=== PATIENT | male | born 1945 | race Caucasian/White ===

== ENCOUNTER 2016-05-08 07:02 | Emergency (ER) | payer MEDICARE, OTHER ==
--- NOTE | 2016-05-08 07:36 | ERPHSYRPT ---
- History of Present Illness Time Seen by Provider: 05/08/16 07:20 Historian: patient, family Exam Limitations: no limitations Physician History: The patient is a 71-year-old male with his complaining of abdominal pain and fever for a week. His fevers have been as high as 103. Yesterday was 102. Abdominal pain is very low. He denies nausea vomiting or diarrhea. He had a small bowel movement yesterday and another small one today. His appetite has decreased. His past medical history is significant for diabetes, hypertension, high cholesterol, and hypothyroidism. His past surgical history is significant for tonsil and adenoidectomy, cholecystectomy, and hernia repair. Timing/Duration: week(s) (1) Activities at Onset: none Quality: aching Abdominal Pain Onset Location: other (lower abd) Pain Radiation: no radiation Severity of Pain-Max: moderate Severity of Pain-Current: moderate Modifying Factors: Improves With: nothing Associated Symptoms: denies symptoms Previous symptoms: no prior history Allergies/Adverse Reactions: Sulfa (Sulfonamide Antibiotics) Allergy (Severe, Verified 05/08/16 07:21) cigarette smoke Allergy (Verified 05/08/16 07:21) Home Medications: Aspirin [[place] Aspirin] 81 mg PO DAILY 05/08/16 [History] Carvedilol 6.25 mg [Coreg 6.25 MG] 6.25 mg PO BID 05/08/16 [History] Insulin Aspart [Novolog Flexpen] 15 unit SQ DAILY 05/08/16 [History] Insulin Aspart [Novolog Flexpen] 20 unit SQ HS 05/08/16 [History] Insulin Detemir [Levemir Flextouch] 55 unit SQ DAILY 05/08/16 [History] Insulin Detemir [Levemir Flextouch] 60 unit SQ HS 05/08/16 [History] Levothyroxine Sodium 112 Mcg [Synthroid 112 Mcg] 112 mcg PO DAILY 05/08/16 [History] Lisinopril 20 mg [Zestril 20 MG] 20 mg PO DAILY 05/08/16 [History] Metformin HCl 1000 mg [Glucophage 1000 MG] 1,000 mg PO BID 05/08/16 [History] Simvastatin [Zocor] 20 mg PO DAILY 05/08/16 [History] - Review of Systems Constitutional: Fever, Chills Eyes: No Symptoms Ears, Nose, & Throat: No Symptoms Respiratory: No Cough, No Dyspnea Cardiac: No Chest Pain, No Edema, No Syncope Abdominal/Gastrointestinal: No Abdominal Pain, No Nausea, No Vomiting, No Diarrhea Genitourinary Symptoms: No Dysuria Musculoskeletal: No Back Pain, No Neck Pain Skin: No Rash Neurological: No Dizziness, No Focal Weakness, No Sensory Changes Psychological: No Symptoms Endocrine: No Symptoms Hematologic/Lymphatic: No Symptoms Immunological/Allergic: No Symptoms All Other Systems: Reviewed and Negative - Nursing Vital Signs Nursing Vital Signs: Initial Vital Signs Temperature 98.4 F Temperature Source Oral Pulse Rate 85 Respiratory Rate 20 Blood Pressure 118/68 Pain Intensity 4 - Physical Exam General Appearance: mild distress Eye Exam: PERRL/EOMI, eyes nml inspection Ears, Nose, Throat Exam: normal ENT inspection, pharynx normal, moist mucous membranes Neck Exam: normal inspection, non-tender, supple, full range of motion Respiratory Exam: normal breath sounds, lungs clear, No respiratory distress Cardiovascular Exam: regular rate/rhythm, normal heart sounds Gastrointestinal/Abdomen Exam: tenderness (suprapubic and left groin and LLQ) Rectal Exam: normal exam, normal rectal tone Back Exam: normal inspection, normal range of motion, No CVA tenderness, No vertebral tenderness Extremity Exam: normal inspection, normal range of motion, pelvis stable Neurologic Exam: alert, oriented x 3, cooperative, normal mood/affect, nml cerebellar function, sensation nml, No motor deficits Skin Exam: normal color, warm, dry SpO2 Interpretation: normal - CT Exams Abdomen/Pelvis CT Interpretation: Tele-radiologist Report, Other (Possible SIOBHAN infarct.) Ordered Tests: Active Orders 24 hr Category Date Time Status IV Insertion STAT Care 05/08/16 07:39 Active ABDOMEN AND PELVIS W/0 CONTRAS [CT] Stat Exams 05/08/16 09:50 Taken CBC W DIFF Stat Lab 05/08/16 08:07 Completed CMP Stat Lab 05/08/16 08:07 Completed Lactic Acid Urgent Lab 05/08/16 07:39 Completed Manual Differential NC Stat Lab 05/08/16 08:07 Completed Occult Blood,Stool Other Stat Lab 05/08/16 08:08 Completed UA W/ MICROSCOPIC Stat Lab 05/08/16 09:28 Completed Medication Summary Discontinued Medications Generic Name Dose Route Start Last Admin Trade Name Freq PRN Reason Stop Dose Admin Sodium Chloride 1,000 mls @ 999 mls/hr 05/08/16 07:39 05/08/16 08:18 Sodium Chloride 0.9% 1000 Ml IV 05/08/16 08:39 999 mls/hr .Q1H1M STA Administration Sodium Chloride Confirm 05/08/16 08:15 Sodium Chloride 0.9% 1000 Ml Administered 05/08/16 08:16 Dose 1,000 mls @ ud .ROUTE .STK-MED ONE Ketorolac Tromethamine 30 mg 05/08/16 07:39 05/08/16 08:19 Toradol 30 Mg Injection IV 05/08/16 07:40 30 mg STAT ONE Administration Ketorolac Tromethamine Confirm 05/08/16 08:15 Toradol 30 Mg Injection Administered 05/08/16 08:16 Dose 30 mg .ROUTE .STK-MED ONE Morphine Sulfate 2 mg 05/08/16 07:39 05/08/16 08:19 Morphine Sulfate 2 Mg Inj IV 05/08/16 07:40 2 mg STAT ONE Administration Morphine Sulfate Confirm 05/08/16 08:15 Morphine Sulfate 2 Mg Inj Administered 05/08/16 08:16 Dose 2 mg .ROUTE .STK-MED ONE Morphine Sulfate 2 mg 05/08/16 08:58 05/08/16 09:24 Morphine Sulfate 2 Mg Inj IV 05/08/16 08:59 2 mg STAT ONE Administration Morphine Sulfate Confirm 05/08/16 09:23 Morphine Sulfate 2 Mg Inj Administered 05/08/16 09:24 Dose 2 mg .ROUTE .STK-MED ONE Ondansetron HCl 4 mg 05/08/16 07:39 05/08/16 08:19 Zofran 4 Mg/2 Ml Vial IV 05/08/16 07:40 4 mg STAT ONE Administration Ondansetron HCl Confirm 05/08/16 08:15 Zofran 4 Mg/2 Ml Vial Administered 05/08/16 08:16 Dose 4 mg .ROUTE .STK-MED ONE Lab/Rad Data: Laboratory Result Diagrams 05/08/16 08:07 05/08/16 08:07 Laboratory Results 01/07/17 01/07/17 01/07/17 Range/Units 09:28 08:08 08:07 WBC (4.0-10.5) K/mm3 RBC (4.1-5.6) M/mm3 Hgb (12.5-18.0) gm/dl Hct (42-50) % MCV (78-100) fl MCH (26-32) pg MCHC (32-36) g/dl RDW (11.5-14.0) % Plt Count (150-450) K/mm3 MPV (6-9.5) fl Segmented Neutrophils (36.-66.) % Band Neutrophils (0.0-2.0) % Lymphocytes (Manual) (24-44) % Monocytes (Manual) (0.0-12.0) % Differential Comment Platelet Estimate (NORMAL) Sodium 134 L (136-145) mEq/L Potassium 4.6 (3.5-5.1) mEq/L Chloride 99 (98-107) mEq/L Carbon Dioxide 28.9 (21-32) mEq/L Anion Gap 10.8 (5-15) MEQ/L BUN 12 (9-20) mg/dL Creatinine 0.91 (0.55-1.30) mg/dl Estimated GFR > 60 ML/MIN Glucose 200 H (70-110) MG/DL Lactic Acid (0.4-2.0) Calcium 8.6 (8.5-10.1) mg/dL Total Bilirubin 0.6 (0.2-1.0) mg/dL AST 35 (15-37) U/L ALT 68 (12-78) U/L Alkaline Phosphatase 161 H (46-116) U/L Serum Total Protein 6.3 L (6.4-8.2) gm/dL Albumin 2.6 L (3.4-5.0) g/dL Ur Collection Type CLEAN CATCH Urine Color YELLOW (YELLOW) Urine Appearance CLEAR (CLEAR) Urine pH 6.0 (5-6) Ur Specific Shields 1.025 (1.005-1.025) Urine Protein 100 (Negative) Urine Glucose (UA) NEGATIVE (NEGATIVE) mg/dL Urine Ketones SMALL-15 (NEGATIVE) Urine Nitrite NEGATIVE (NEGATIVE) Urine Bilirubin MODERATE (NEGATIVE) Urine Urobilinogen 1 (0-1) mg/dL Urine WBC (Auto) NEGATIVE (NEGATIVE) Urine RBC (Auto) NEGATIVE (0-5) Jeremiah/ul Urine Microscopic RBC 2-5 (0-2) /HPF Urine Microscopic WBC 0-2 (0-5) /HPF Ur Epithelial Cells RARE (FEW) /HPF Urine Bacteria FEW (NEGATIVE) /HPF Urine Mucus MANY (NEGATIVE) /HPF Stool Occult Blood NEGATIVE (Negative) Specimen Received [id number] 05/08/16 05/08/16 Range/Units 08:07 07:39 WBC 7.3 (4.0-10.5) K/mm3 RBC 3.87 L (4.1-5.6) M/mm3 Hgb 10.9 L (12.5-18.0) gm/dl Hct 33.7 L (42-50) % MCV 87.1 (78-100) fl MCH 28.1 (26-32) pg MCHC 32.3 (32-36) g/dl RDW 13.5 (11.5-14.0) % Plt Count 217 (150-450) K/mm3 MPV 10.0 H (6-9.5) fl Segmented Neutrophils 89 H (36.-66.) % Band Neutrophils 1 (0.0-2.0) % Lymphocytes (Manual) 8 L (24-44) % Monocytes (Manual) 2 (0.0-12.0) % Differential Comment NORMAL Platelet Estimate NORMAL (NORMAL) Sodium (136-145) mEq/L Potassium (3.5-5.1) mEq/L Chloride (98-107) mEq/L Carbon Dioxide (21-32) mEq/L Anion Gap (5-15) MEQ/L BUN (9-20) mg/dL Creatinine (0.55-1.30) mg/dl Estimated GFR ML/MIN Glucose (70-110) MG/DL Lactic Acid 0.8 (0.4-2.0) Calcium (8.5-10.1) mg/dL Total Bilirubin (0.2-1.0) mg/dL AST (15-37) U/L ALT (12-78) U/L Alkaline Phosphatase (46-116) U/L Serum Total Protein (6.4-8.2) gm/dL Albumin (3.4-5.0) g/dL Ur Collection Type Urine Color (YELLOW) Urine Appearance (CLEAR) Urine pH (5-6) Ur Specific Shields (1.005-1.025) Urine Protein (Negative) Urine Glucose (UA) (NEGATIVE) mg/dL Urine Ketones (NEGATIVE) Urine Nitrite (NEGATIVE) Urine Bilirubin (NEGATIVE) Urine Urobilinogen (0-1) mg/dL Urine WBC (Auto) (NEGATIVE) Urine RBC (Auto) (0-5) Jeremiah/ul Urine Microscopic RBC (0-2) /HPF Urine Microscopic WBC (0-5) /HPF Ur Epithelial Cells (FEW) /HPF Urine Bacteria (NEGATIVE) /HPF Urine Mucus (NEGATIVE) /HPF Stool Occult Blood (Negative) Specimen Received - Progress Progress: improved, pain not gone completely Progress Note: 05/08/16 13:[address] and CT findings with Dr Cabrera and Dr Winslow who decline pt. Dr Dougherty at [facility] accepts pt for transfer. Pt requests not to see Dr Winslow, wants to see Dr Hensley. Discussed with Dr.: Other (Dr Dougherty at [facility]) Counseled pt/family regarding: lab results, diagnosis, need for follow-up - Departure Time of Disposition: 13:09 Departure Disposition: Transfer (Transfer to [facility] per Dr Dougherty) Clinical Impression: Abdominal pain Condition: Good Critical Care Time: No
[2016-05-08] MEDS ORDERED: MORPHINE SULFATE 2 MG INJ IV ONE ×2 (07:39→08:58)
[2016-05-08] MEDS ORDERED: Sodium Chloride 0.9% 1000 ML 1,000 ML IV STA (07:39)
[2016-05-08] MEDS ORDERED: Zofran 4 MG/2 ML VIAL IV ONE (07:39)
[2016-05-08] MEDS ORDERED: TORAdol 30 mg Injection IV ONE (07:39)
[2016-05-08] MEDS ORDERED: MORPHINE SULFATE 2 MG INJ ONE ×2 (08:15→09:23)
[2016-05-08] MEDS ORDERED: Zofran 4 MG/2 ML VIAL ONE (08:15)
[2016-05-08] MEDS ORDERED: Sodium Chloride 0.9% 1000 ML 1,000 ML ONE (08:15)
[2016-05-08] MEDS ORDERED: TORAdol 30 mg Injection ONE (08:15)
[2016-05-08 08:18] LABS: Mean Cell Volume 87.1 fl (78-100); Platelet Count 217 K/mm3 (150-450); Red Blood Count 3.87 M/mm3 (4.1-5.6); Red Cell Distribution Width 13.5 % (11.5-14.0); White Blood Count 7.3 K/mm3 (4.0-10.5)
[2016-05-08 08:23] LABS: Mean Corpuscular Hemoglobin 28.1 pg (26-32)
[2016-05-08 08:37] LABS: ALBUMIN 2.6 g/dL (3.4-5.0); ALKALINE PHOSPHATASE 161 U/L (46-116); ANION GAP 10.8 MEQ/L (5-15); BILIRUBIN,TOTAL 0.6 mg/dL (0.2-1.0); BLOOD UREA NITROGEN 12 mg/dL (9-20); CHLORIDE 99 mEq/L (98-107); Carbon Dioxide 28.9 mEq/L (21-32); Glucose 200 MG/DL (70-110); Potassium 4.6 mEq/L (3.5-5.1); SGOT/AST 35 U/L (15-37); SGPT/ALT 68 U/L (12-78); SODIUM 134 mEq/L (136-145); Total Protein 6.3 gm/dL (6.4-8.2)
[2016-05-08 08:40] LABS: BAND 1 % (0.0-2.0); Platelet Estimate NORMAL (NORMAL); Total Cells Counted 100
[2016-05-08 09:28] LABS: COMPLETE URINE MICROSCOPIC? YES; Collection Type CLEAN CATCH
[2016-05-08 09:43] LABS: Bacteria FEW /HPF (NEGATIVE); Epithelial Cells RARE /HPF (FEW); Mucus MANY /HPF (NEGATIVE); WBC 0-2 /HPF (0-5)
[2016-05-08 11:59] VITALS: BP 118/68
[2016-05-08 13:51] VITALS: PULSE 88; O2SAT 95
--- NOTE | 2016-05-08 19:52 | XRAY ---
Indication: Lower abdominal pain. Fever. Multiple contiguous axial images obtained through the abdomen and pelvis without contrast as ordered. Comparison: None Lung bases are slightly degraded by respiration artifact. Minimal bibasilar fibrosis/scarring. Left base calcified granuloma. Inferior right middle lobe subcentimeter nodule presumed granulomatous. Heart is not enlarged. Noncontrasted stomach and bowel loops appear nonobstructed. Scattered colonic diverticulosis without diverticulitis, greatest sigmoid colon. Normal air-filled appendix. No free fluid/air. There is mild omental stranding along the course of the inferior mesenteric artery either inflammatory versus omental infarct. Nonobstructing punctate right renal calculus. 15 cm splenomegaly with calcified granulomas. Previous cholecystectomy. Remaining liver, pancreas, spleen, adrenal glands, kidneys, ureters, and bladder appear unremarkable for noncontrast exam. Mild aortic calcifications without AAA. There is diffuse anterior abdominal wall cutaneous/subcutaneous swelling/induration probably inflammatory. Osseous structures intact with degenerative changes throughout the spine and both hips. Impression: 1. Omental stranding along the course of the inferior mesenteric artery either inflammatory versus omental infarct. No walled off fluid collection or free air. 2. Diffuse abdominal cutaneous/subcutaneous induration. Rule out cellulitis. 3. Scattered colonic diverticulosis, nonobstructing right renal micro-calculus, splenomegaly, and evidence for old granulomatous disease. CTDI is 23.68
== END 2016-05-08 14:13 | disposition short-term general hospital (02) ==
LOC: ED 07:02
DX: R07.89 Other chest pain (principal); R10.9 Unspecified abdominal pain; R50.9 Fever, unspecified; E11.9 Type 2 diabetes mellitus without complications; I10 Essential (primary) hypertension; Z79.4 Long term (current) use of insulin; Z79.899 Other long term (current) drug therapy
CPT/HCPCS: 96374; 99284; 36000; 96360; 96375; 96376; 81000; 36415; 82272; 85025; 80053; 74176; 83605; P9612; J1885; J2270; J2405

== ENCOUNTER 2019-03-09 09:42 | Emergency (ER) | payer MEDICARE, OTHER ==
--- NOTE | 2019-03-09 09:48 | ERPHSYRPT ---
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 It is very positional, and feels like a squeezing sensation isolated to the right lower back Does not radiate No bowel pain No focal numbness or weakness No bowel or bladder dysfunction such as retention or incontinence This anesthesia No known recent trauma Tried Tylenol 2 days ago without relief has not taken anything since No fevers during this time course No polyuria or polydipsia PMH: Patient history hypertension and insulin-dependent diabetes Social: patient denies alcohol, tobacco, illicits Timing/Duration: day(s) (3 days) Activities at Onset: activity (manual labor day before this began) Quality: aching, tightness Abdominal Pain Onset Location: other (right low back) Severity of Pain-Max: moderate Severity of Pain-Current: moderate Modifying Factors: Improves With: position Previous symptoms: no prior history Allergies/Adverse Reactions: Sulfa (Sulfonamide Antibiotics) Allergy (Severe, Verified 03/09/19 09:56) cigarette smoke Allergy (Verified 03/09/19 09:56) Home Medications: Aspirin [[place] Aspirin] 81 mg PO DAILY 05/08/16 [History] Carvedilol 6.25 mg [Coreg 6.25 MG] 6.25 mg PO BID 05/08/16 [History] Insulin Aspart [Novolog Flexpen] 20 unit SQ DAILY 05/08/16 [History] Insulin Aspart [Novolog Flexpen] 25 unit SQ HS 05/08/16 [History] Insulin Detemir [Levemir Flextouch] 60 unit SQ DAILY 05/08/16 [History] Insulin Detemir [Levemir Flextouch] 60 unit SQ HS 05/08/16 [History] Levothyroxine Sodium 112 Mcg [Synthroid 112 Mcg] 112 mcg PO DAILY 05/08/16 [History] Lisinopril 20 mg [Zestril 20 MG] 20 mg PO DAILY 05/08/16 [History] Metformin HCl 1000 mg [Glucophage 1000 MG] 1,000 mg PO BID 05/08/16 [History] Simvastatin [Zocor] 20 mg PO DAILY 05/08/16 [History] Hx Tetanus, Diphtheria Vaccination/Date Given: No Hx Influenza Vaccination/Date Given: Yes Hx Pneumococcal Vaccination/Date Given: Yes - Review of Systems Constitutional: No Fever, No Chills Eyes: No Symptoms Ears, Nose, & Throat: No Symptoms Respiratory: No Cough, No Dyspnea Cardiac: No Chest Pain, No Edema, No Syncope Abdominal/Gastrointestinal: No Abdominal Pain, No Nausea, No Vomiting, No Diarrhea Genitourinary Symptoms: No Dysuria Musculoskeletal: Back Pain, No Neck Pain, No Joint Redness, No Joint Pain, No Joint Swelling, No Myalgias Skin: No Rash Neurological: No Dizziness, No Focal Weakness, No Sensory Changes Psychological: No Symptoms Endocrine: No Symptoms All Other Systems: Reviewed and Negative - Past Medical History Pertinent Past Medical History: Yes Neurological History: No Pertinent History Cardiac History: Hypertension Respiratory History: No Pertinent History Endocrine Medical History: Diabetes Type II, Hypothyroidism Musculoskeletal History: Osteoarthritis GI Medical History: Gallbladder Disease, Hemorrhoids Other Medical History: R TKA 05/2017 - Past Surgical History Past Surgical History: Yes Gastrointestinal: Cholecystectomy, Hernia Repair Musculoskeletal: Orthopedic Surgery Other Surgical History: parathyroid removed, toe surgery, left shoulder, t&a - Social History Smoking Status: Never smoker Exposure to second hand smoke: No Drug Use: none Patient Lives Alone: No - Nursing Vital Signs Nursing Vital Signs: Initial Vital Signs Temperature 98.0 F 03/09/19 09:48 Pulse Rate 88 03/09/19 09:48 Respiratory Rate 18 03/09/19 09:48 Blood Pressure 155/61 03/09/19 09:48 O2 Sat by Pulse Oximetry 97 03/09/19 09:48 Pain Scale Pain Intensity 3 - Physical Exam General Appearance: no apparent distress, alert Eye Exam: PERRL/EOMI, eyes nml inspection Ears, Nose, Throat Exam: normal ENT inspection, pharynx normal, moist mucous membranes Neck Exam: normal inspection, non-tender, supple, full range of motion Respiratory Exam: normal breath sounds, lungs clear, No respiratory distress Cardiovascular Exam: regular rate/rhythm, normal heart sounds Gastrointestinal/Abdomen Exam: soft, No tenderness, No mass Back Exam: normal inspection, normal range of motion, other (slight relief of pain with massaging and percussion of the right lumbar paraspinal musculature), No CVA tenderness, No vertebral tenderness Extremity Exam: normal inspection, normal range of motion, pelvis stable Neurologic Exam: alert, oriented x 3, cooperative, normal mood/affect, nml cerebellar function, sensation nml, No motor deficits Skin Exam: normal color, warm, dry Ordered Tests: Active Orders 24 hr Category Date Time Status BMP Stat Lab 03/09/19 10:35 Completed CBC W DIFF Stat Lab 03/09/19 10:35 Completed Manual Differential NC Stat Lab 03/09/19 10:35 Completed UA W/RFX UR CULTURE Stat Lab 03/09/19 10:12 Completed Medication Summary Discontinued Medications Generic Name Dose Route Start Last Admin Trade Name Kendrickq PRN Reason Stop Dose Admin Ketorolac Tromethamine 15 mg 03/09/19 10:02 03/09/19 10:07 Toradol 30 Mg Injection IV 03/09/19 10:03 15 mg STAT ONE Administration Ketorolac Tromethamine Confirm 03/09/19 10:04 Toradol 30 Mg Injection Administered 03/09/19 10:05 Dose 30 mg .ROUTE .STK-MED ONE Oxycodone/Acetaminophen 1 tab 03/09/19 10:02 03/09/19 10:07 Percocet Tablet 5/325mg PO 03/09/19 10:03 1 tab STAT ONE Administration Oxycodone/Acetaminophen Confirm 03/09/19 10:04 Percocet Tablet 5/325mg Administered 03/09/19 10:05 Dose 1 tab .ROUTE .STK-MED ONE Lab/Rad Data: Laboratory Result Diagrams 03/09/19 10:35 03/09/19 10:35 Laboratory Results 03/09/19 03/09/19 03/09/19 Range/Units 10:35 10:35 10:12 WBC 5.4 (4.0-10.5) K/mm3 RBC 3.95 L (4.1-5.6) M/mm3 Hgb 11.3 L (12.5-18.0) gm/dl Hct 33.8 L (42-50) % MCV 85.6 (78-100) fl MCH 28.6 (26-32) pg MCHC 33.4 (32-36) g/dl RDW 13.7 (11.5-14.0) % Plt Count 237 (150-450) K/mm3 MPV 8.7 (6-9.5) fl Absolute Granulocytes 3.91 (1.4-6.9) Segmented Neutrophils 66 (36.-66.) % Band Neutrophils 7 H (0.0-2.0) % Lymphocytes (Manual) 16 L (24-44) % Monocytes (Manual) 9 (0.0-12.0) % Eosinophils (Manual) 2 (0.00-3.0) % Platelet Estimate NORMAL (NORMAL) RBC Morphology ABNORMAL Anisocytosis 1+ Sodium 139 (137-145) mmol/L Potassium 4.8 (3.5-5.1) mmol/L Chloride 103 (98-107) mmol/L Carbon Dioxide 26 (22-30) mmol/L Anion Gap 14.6 (5-15) MEQ/L BUN 18 (9-20) mg/dL Creatinine 0.69 (0.66-1.25) mg/dL Estimated GFR > 60.0 ML/MIN Glucose 151 H (74-106) mg/dL Calcium 9.3 (8.4-10.2) mg/dL Urine Color YELLOW (YELLOW) Urine Appearance CLEAR (CLEAR) Urine pH 5.0 (5-6) Ur Specific Bronson 1.019 (1.005-1.025) Urine Protein NEGATIVE (Negative) Urine Ketones NEGATIVE (NEGATIVE) Urine Blood NEGATIVE (0-5) Jeremiah/ul Urine Nitrite NEGATIVE (NEGATIVE) Urine Bilirubin NEGATIVE (NEGATIVE) Urine Urobilinogen NEGATIVE (0-1) mg/dL Ur Leukocyte Esterase NEGATIVE (NEGATIVE) Urine WBC (Auto) NONE (0-5) /HPF Urine RBC (Auto) NONE (0-2) /HPF U Epithel Cells (Auto) NONE (FEW) /HPF Urine Bacteria (Auto) NONE (NEGATIVE) /HPF Urine Culture Reflexed NO (NO) Urine Glucose NEGATIVE (NEGATIVE) mg/dL - Progress Progress: improved Progress Note: patient feeling better at this time after symptomatic treatment. Urine without hematuria, very low suspicion for ureterolithiasis. Given his lack of complete medical history no focal neuro deficits or abdominal pain and the fact it is very positional and occurred after physical exertion, and very low suspicion for serious bacterial infection or surgical pathology of the abdomen or vascular catastrophe such as triple-A. Patient has normal vital signs and is afebrile. Should his electrolyte panel B. normal he'll be appropriate for discharge with recommendations for rest, gentle stretching come in for therapy and primary care followup. Patient voiced an understanding of this plan and the return precautions. 03/09/19 10:56 - Departure Departure Disposition: Home Clinical Impression: Back pain Qualifiers: Back pain location: low back pain Chronicity: acute Back pain laterality: right Sciatica presence: unspecified whether sciatica present Qualified Code(s) : M54.5 - Low back pain Condition: Good Critical Care Time: No Referrals: RUDDY ROBLES [Primary Care Provider] - Instructions: Low Back Pain in Adults Additional Instructions: Try ibuprofen or naproxen for your pain. Try heat or over the counter lidocaine patches if needed. Follow up with her primary care provider or return to the emergency department for new or concerning symptoms.
[2019-03-09 09:57] VITALS: PULSE 88; O2SAT 97
[2019-03-09] MEDS ORDERED: TORAdol 30 mg Injection ONE (10:04)
[2019-03-09] MEDS ORDERED: PERCOCET TABLET 5/325MG ONE (10:04)
[2019-03-09] MEDS: TORAdol 30 mg Injection IV ONE (10:07)
[2019-03-09] MEDS: PERCOCET TABLET 5/325MG PO ONE (10:07)
[2019-03-09 10:28] LABS: Appearance CLEAR (CLEAR); Bilirubin NEGATIVE (NEGATIVE); Blood NEGATIVE Ery/ul (0-5); Glucose NEGATIVE (NEGATIVE); Ketones NEGATIVE (NEGATIVE); Leukocyte Esterase NEGATIVE (NEGATIVE); Nitrite NEGATIVE (NEGATIVE); Protein,Urine Dip NEGATIVE (Negative); Specific Gravity 1.019 (1.005-1.025); Urobilinogen NEGATIVE mg/dL (0-1)
[2019-03-09 10:39] LABS: Hematocrit 33.8 % (42-50); Hemoglobin 11.3 gm/dl (12.5-18.0); Mean Cell Volume 85.6 fl (78-100); Mean Corpuscular Hemoglobin 28.6 pg (26-32); Mean Corpuscular Hgb Concent. 33.4 g/dl (32-36); Mean Platelet Volume 8.7 fl (6-9.5); Platelet Count 237 K/mm3 (150-450); Red Blood Count 3.95 M/mm3 (4.1-5.6); Red Cell Distribution Width 13.7 % (11.5-14.0); White Blood Count 5.4 K/mm3 (4.0-10.5)
[2019-03-09 11:00] LABS: ANION GAP 14.6 MEQ/L (5-15); BLOOD UREA NITROGEN 18 mg/dL (9-20); CHLORIDE 103 mmol/L (98-107); Calcium 9.3 mg/dL (8.4-10.2); Carbon Dioxide 26 mmol/L (22-30); Creatinine 1 0.69 mg/dL (0.66-1.25); Glucose 151 mg/dL (74-106); Potassium 4.8 mmol/L (3.5-5.1); SODIUM 139 mmol/L (137-145)
[2019-03-09 11:02] LABS: BAND 7 % (0.0-2.0); Eosinophil 2 % (0.00-3.0); Lymphocytes 16 % (24-44); Monocyte 9 % (0.0-12.0); Neutrophils 66 % (36.-66.); Platelet Estimate NORMAL (NORMAL); Total Cells Counted 100
[2019-03-09 11:03] LABS: ANISOCYTOSIS 1+; Absolute Neutrophil Ct (ANC) 3.91 (1.4-6.9)
[2019-03-09 12:13] VITALS: BP 133/99
== END 2019-03-09 12:13 | disposition home or self-care (01) ==
LOC: ED 09:42
DX: M54.5 Low back pain (principal); E11.9 Type 2 diabetes mellitus without complications; Z79.4 Long term (current) use of insulin; E03.9 Hypothyroidism, unspecified; M19.90 Unspecified osteoarthritis, unspecified site; Z79.899 Other long term (current) drug therapy
CPT/HCPCS: 36415; 80048; 81001; 85025; 96372; 99284; J1885; A9270-GY